=== PATIENT | male | born 1990 | race African-American/Black ===

== ENCOUNTER 2016-11-07 16:50 | Emergency (ER) | payer OTHER | END 2016-11-07 17:00 | disposition home or self-care (01) | LOC: ER 16:50 | DX: S19.9XXA Unspecified injury of neck, initial encounter (principal); S39.92XA Unspecified injury of lower back, initial encounter; V29.40XA Motorcycle driver injured in collision with unspecified motor vehicles in traffic accident, initial encounter | CPT/HCPCS: 72040; 72100; 99284 ==